=== PATIENT | female | born 1970 | race African-American/Black ===

== ENCOUNTER → 2017-02-25 | Outpatient (CLI) | payer MEDICARE, MEDICAID ==
[~2017-02-25] MED LIST: AMLO10TA80 PO; DOCU-150 PO; HYDR25TA PO; IBUP-1510 PO; IRON18TA PO; TRAM50TA3 PO
[2017-02-25 16:46] LABS: BASOPHILS % 0.9 % (0.0-2.0); EOSINOPHILS % 5.1 % (0.0-5.0); HEMATOCRIT. 36.1 % (36.0-48.0); HEMOGLOBIN. 11.8 g/dL (12.0-16.0); LYMPHOCYTES % 39.7 % (20.0-50.0); MEAN CORPUSCULAR HEMOGLOBIN 28.5 pg (28.0-32.0); MEAN CORPUSCULAR VOLUME 87.1 fL (81.0-99.0); MEAN PLATELET VOLUME 8.1 fl (7.4-10.4); MONOCYTES % 9.7 % (2.0-8.0); NEUTROPHILS % 44.6 % (40.0-76.0); PLATELET 281 x1000/uL (130-400); RED BLOOD CELL COUNT 4.15 mill/uL (4.2-5.4); RED CELL DISTRIBUTION WIDTH 18.8 % (11.6-14.6)
[2017-02-25 16:49] LABS: CLARITY URINE CLOUDY (CLEAR); COLOR URINE YELLOW (YELLOW); GLUCOSE URINE NEGATIVE (NEGATIVE); KETONES URINE TRACE (NEGATIVE); LEUKOCYTE ESTERASE URINE NEGATIVE (NEGATIVE); NITRITE URINE NEGATIVE (NEGATIVE); OCCULT BLOOD URINE NEGATIVE (NEGATIVE); PH URINE 5.5 (4.5-8.0); PROTEIN URINE NEGATIVE (NEGATIVE); SPECIFIC GRAVITY URINE 1.023 (1.005-1.030); UROBILINOGEN URINE 0.2 E.U./dL (0.2-1.0)
[2017-02-25 16:53] LABS: PARTIAL THROMBOPLASTIN TIME 27.3 sec (24.0-34.0); PROTHROMBIN TIME 10.5 sec
[2017-02-25 16:53] LABS: UCG SCREEN NEGATIVE
[2017-02-25 17:03] LABS: CARBON DIOXIDE 26 mEq/L (21-32); CHLORIDE 106 mEq/L (98-107)
== END | disposition home or self-care (01) ==
LOC: LAB 15:59
PROVIDERS: ATTEND Obstetrics & Gynecology
DX: Z01.818 Encounter for other preprocedural examination (principal); D25.9 Leiomyoma of uterus, unspecified
CPT/HCPCS: 36415; 80048; 81001; 81025; 85025; 85610; 85730; 86850; 86900; 87077; 87086

== ENCOUNTER 2017-02-26 06:04 | Inpatient (IN) | payer MEDICARE, MEDICAID ==
[~2017-02-26] VITALS: Ht 172.7 cm; Wt 98.4 kg
[2017-02-26] MEDS ORDERED: LACTATED RINGERS 1,000 ML IV SCH (06:15)
[2017-02-26] MEDS ORDERED: BUPIVACAINE HCL 0.5% (5MG/ML) 50ML ONE (07:04)
[2017-02-26] MEDS ORDERED: VASOPRESSIN 20 UNIT/ML 1ML ONE (07:05)
[2017-02-26] MEDS ORDERED: MIDAZOLAM HCL 2 MG/2 ML VIAL ONE (07:39)
[2017-02-26] MEDS ORDERED: FENTANYL CITRATE/PF 50MCG/ML 2ML VIAL ONE (07:39)
[2017-02-26] MEDS ORDERED: IBUP-1510 PO (07:59)
[2017-02-26] MEDS ORDERED: DOCU-150 PO (07:59)
[2017-02-26] MEDS ORDERED: TRAM50TA3 PO (07:59)
[2017-02-26] MEDS ORDERED: IRON18TA PO (07:59)
[2017-02-26] MEDS ORDERED: LABETALOL HCL 20MG/4ML CARPUJECT IV PRN (08:15)
[2017-02-26] MEDS ORDERED: MEPERIDINE HCL/PF 25MG/ML CPJ IV PRN (08:15)
[2017-02-26] MEDS ORDERED: ONDANSETRON HCL 4MG/2ML VIAL IV PRN ×2 (08:15→11:00)
[2017-02-26] MEDS ORDERED: NEOSTIGMINE METHYLSULFATE 1MG/ML 10 ML VIAL ONE (09:49)
[2017-02-26] MEDS ORDERED: GLYCOPYRROLATE 0.2 MG/ML 2ML VIAL ONE (09:49)
[2017-02-26] MEDS ORDERED: DEXAMETHASONE 4MG/ML 1ML VIAL ONE (09:49)
[2017-02-26] MEDS ORDERED: ROCURONIUM BROMIDE 10MG/ML VIAL 5ML IV ONE (09:49)
[2017-02-26] MEDS ORDERED: SUCCINYLCHOLINE CHLORIDE 200MG/10ML VIAL IV ONE (09:49)
[2017-02-26] MEDS ORDERED: CEFAZOLIN SODIUM 1000MG/VIAL ONE (09:49)
[2017-02-26] MEDS ORDERED: SODIUM CHLORIDE 0.9% 10ML VIAL ONE (09:49)
[2017-02-26] MEDS ORDERED: LIDOCAINE HCL 1% 20ML VIAL (Pyxis) INJ ONE (09:49)
[2017-02-26] MEDS ORDERED: PROPOFOL 200MG/20ML VIAL IV ONE ×2 (09:49→09:57)
[2017-02-26] MEDS ORDERED: ONDANSETRON HCL 4MG/2ML VIAL ONE (09:50)
[2017-02-26] MEDS ORDERED: HYDROMORPHONE HCL/PF 2MG/ML (OR) ONE (09:57)
[2017-02-26] MEDS: HYDROMORPHONE HCL/PF 2MG/ML CPJ IV PRN ×4 (10:26→10:47)
[2017-02-26] MEDS ORDERED: HYDRALAZINE 20MG/ML VIAL IV PRN (10:30)
[2017-02-26] MEDS ORDERED: ONDANSETRON INJ IV PRN (10:45)
[2017-02-26] MEDS ORDERED: DIPHENHYDRAMINE INJ IV PRN (10:45)
[2017-02-26] MEDS ORDERED: NALOXONE INJ IV PRN (10:45)
[2017-02-26] MEDS: HYDROMORPHONE PCA 10MG/50ML IV PRN (11:32)
[2017-02-26 12:00] VITALS: BP 146/96
[2017-02-26 13:29] VITALS: BP 146/96
[2017-02-26 16:00] VITALS: BP 169/98
[2017-02-26 20:00] VITALS: BP 129/81
[2017-02-26] MEDS: FAMOTIDINE 20MG/2ML VIAL IV SCH (21:47)
[2017-02-27] VITALS: BP 160/78
[2017-02-27 04:00] VITALS: BP 162/95
[2017-02-27 06:52] LABS: CARBON DIOXIDE 27 mEq/L (21-32); CHLORIDE 109 mEq/L (98-107)
[2017-02-27 06:59] LABS: BASOPHILS % 0.5 % (0.0-2.0); EOSINOPHILS % 0.9 % (0.0-5.0); HEMATOCRIT. 29.5 % (36.0-48.0); HEMOGLOBIN. 9.6 g/dL (12.0-16.0); LYMPHOCYTES % 24.8 % (20.0-50.0); MEAN CORPUSCULAR HEMOGLOBIN 28.7 pg (28.0-32.0); MEAN PLATELET VOLUME 8.6 fl (7.4-10.4); MONOCYTES % 9.4 % (2.0-8.0); NEUTROPHILS % 64.4 % (40.0-76.0); PLATELET 239 x1000/uL (130-400); RED BLOOD CELL COUNT 3.36 mill/uL (4.2-5.4); RED CELL DISTRIBUTION WIDTH 18.6 % (11.6-14.6)
[2017-02-27] MEDS: HYDROMORPHONE PCA 10MG/50ML IV PRN (07:03)
[2017-02-27 08:00] VITALS: BP 154/94
[2017-02-27] MEDS ORDERED: ENOXAPARIN 40MG/0.4ML SYR SUBCUT SCH (09:00)
[2017-02-27] MEDS: FAMOTIDINE 20MG/2ML VIAL IV SCH ×2 (09:16→20:16)
[2017-02-27 12:00] VITALS: BP 141/85
[2017-02-27] MEDS ORDERED: POTASSIUM CHLORIDE 20MEQ TABLET SR PO NR (13:45)
[2017-02-27] MEDS: HYDROCODONE/ACETAMINOPHEN 5/325MG TABLET PO PRN ×2 (15:06→20:21)
[2017-02-27 16:00] VITALS: BP 149/84
[2017-02-27] MEDS: ENOXAPARIN 30MG/0.3ML SYR SUBCUT SCH (20:17)
[2017-02-28] VITALS: BP 174/103
[2017-02-28] MEDS: HYDROCODONE/ACETAMINOPHEN 5/325MG TABLET PO PRN ×4 (00:14→23:57)
[2017-02-28] MEDS: HYDRALAZINE 10 MG in SODIUM CHLORIDE 0.9% 49.5 ML IV PRN ×3 (01:37→17:23)
[2017-02-28 08:00] VITALS: BP 148/100
[2017-02-28] MEDS: FAMOTIDINE 20MG/2ML VIAL IV SCH ×3 (09:12→21:12)
[2017-02-28] MEDS: ENOXAPARIN 30MG/0.3ML SYR SUBCUT SCH ×2 (09:12→21:11)
[2017-02-28] MEDS: HYDROCHLOROTHIAZIDE 25MG TABLET PO SCH (10:00)
[2017-02-28] MEDS ORDERED: BISACODYL 10MG SUPP PR NR (10:00)
[2017-02-28] MEDS ORDERED: HYDR25TA PO (10:03)
[2017-02-28] MEDS ORDERED: AMLO10TA80 PO (10:03)
[2017-02-28] MEDS ORDERED: POTASSIUM CHLORIDE 20MEQ TABLET SR PO SCH (10:30)
[2017-02-28] MEDS: DOCUSATE SODIUM 100MG CAPSULE PO SCH (10:36)
[2017-02-28] MEDS: AMLODIPINE 10MG TABLET PO SCH (10:36)
[2017-02-28 12:00] VITALS: BP 164/97
[2017-02-28 16:00] VITALS: BP 154/81
[2017-02-28 20:00] VITALS: BP 124/76
[2017-03-01 04:00] VITALS: BP 169/101
[2017-03-01 04:30] VITALS: BP 155/86
[2017-03-01 07:26] LABS: CARBON DIOXIDE 24 mEq/L (21-32); CHLORIDE 105 mEq/L (98-107)
[2017-03-01 08:00] VITALS: BP 135/83
[2017-03-01] MEDS: DOCUSATE SODIUM 100MG CAPSULE PO SCH (08:58)
[2017-03-01] MEDS: HYDROCHLOROTHIAZIDE 25MG TABLET PO SCH (08:58)
[2017-03-01] MEDS: AMLODIPINE 10MG TABLET PO SCH (08:59)
[2017-03-01] MEDS: ENOXAPARIN 30MG/0.3ML SYR SUBCUT SCH (08:59)
[2017-03-01] MEDS: FAMOTIDINE 20MG/2ML VIAL IV SCH (08:59)
[2017-03-01] MEDS ORDERED: POTASSIUM CHLORIDE 20MEQ TABLET SR PO SCH (11:30)
[2017-03-01 12:00] VITALS: BP 145/103
[2017-03-01] MEDS: HYDROCODONE/ACETAMINOPHEN 5/325MG TABLET PO PRN (12:28)
[2017-03-01] MEDS: HYDRALAZINE 10 MG in SODIUM CHLORIDE 0.9% 49.5 ML IV PRN (13:12)
[2017-03-01 14:10] VITALS: BP 139/86
== END 2017-03-01 15:30 | disposition home or self-care (01) | DRG 743 ==
LOC: OR 06:04 → 6EST 06:05
PROVIDERS: ADMIT Obstetrics & Gynecology; ATTEND Obstetrics & Gynecology
PROC: 0UT90ZZ Resection of Uterus, Open Approach (ICD-10-PCS; principal; 2017-02-27)
PROC: 0UTC0ZZ Resection of Cervix, Open Approach (ICD-10-PCS; 2017-02-27)
DX: D25.9 Leiomyoma of uterus, unspecified (principal); N92.0 Excessive and frequent menstruation with regular cycle; N73.6 Female pelvic peritoneal adhesions (postinfective); J45.909 Unspecified asthma, uncomplicated; I10 Essential (primary) hypertension; D64.9 Anemia, unspecified; E66.9 Obesity, unspecified; Z68.33 Body mass index [BMI] 33.0-33.9, adult
CPT/HCPCS: 36415; 71010; 80048; 81001; 81025; 85025; 85610; 85730; 86850; 86900; 87077; 87086; 88305; 88307; 88331; 93005; A4216; C1893; J0330; J0360; J0690; J1100; J1170; J1650; J2250; J2405; J2704; J2710; J3010; J3490; J7030; J7040; J7120